=== PATIENT | male | born 1950 | race Caucasian/White ===

== ENCOUNTER 2022-12-01 11:32 | Emergency (ER) | payer MEDICARE | END 2022-12-01 12:40 | disposition home or self-care (01) | LOC: JP.ED 11:32 | DX: S30.860A Insect bite (nonvenomous) of lower back and pelvis, initial encounter (principal); I10 Essential (primary) hypertension; W57.XXXA Bitten or stung by nonvenomous insect and other nonvenomous arthropods, initial encounter; Y93.K1 Activity, walking an animal | CPT/HCPCS: 99281 ==

== ENCOUNTER 2023-11-30 15:38 | Emergency (ER) | payer MEDICARE ==
[2023-11-30] MEDS: Doxycycline 100 MG Cap PO ONE (17:44)
== END 2023-11-30 17:46 | disposition home or self-care (01) ==
LOC: JP.ED 15:38
DX: S10.96XA Insect bite of unspecified part of neck, initial encounter (principal); I10 Essential (primary) hypertension; Z79.899 Other long term (current) drug therapy; W57.XXXA Bitten or stung by nonvenomous insect and other nonvenomous arthropods, initial encounter
CPT/HCPCS: 99282; A9270